=== PATIENT | female | born 1990 | race Hispanic/Latino ===

== ENCOUNTER 2023-07-14 21:37 | Emergency (ER) | payer SELFPAY ==
[2023-07-14 21:51] VITALS: BP 113/79; PULSE 72; RESP 18; TEMP 36.4; O2SAT 100
[2023-07-14 22:54] VITALS: O2SAT 100
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
[2023-07-14] MEDS: TETANUS,DIPHTHERIA,AC PERTUSSIS ADULT (0.5 ML) BOOSTRIX IM (23:12)
[2023-07-14] MEDS: SILVER SULFADIAZINE 1% CR 50 GM JAR (*BKC) 1 APPLIC TOPICAL (23:12)
== END 2023-07-14 23:58 | disposition home or self-care (01) ==
PROVIDERS: Emergency Provider Emergency Medicine
DX: T25.221A Burn of second degree of right foot, initial encounter (principal); T24.112A Burn of first degree of left thigh, initial encounter; T24.111A Burn of first degree of right thigh, initial encounter; T31.0 Burns involving less than 10% of body surface; Z23 Encounter for immunization; X12.XXXA Contact with other hot fluids, initial encounter
CPT/HCPCS: 90471; 90715; 99283; A9270